=== PATIENT | male | born 1955 | race Caucasian/White ===

== ENCOUNTER 2016-07-24 09:45 | Day surgery (SDC) | payer OTHER ==
[~2016-07-24] VITALS: Ht 172.7 cm; Wt 80.7 kg
== END 2016-07-24 11:50 | disposition short-term general hospital (02) ==
LOC: SURGOP 09:45
PROC: 0DBE8ZZ Excision of Large Intestine, Via Natural or Artificial Opening Endoscopic (ICD-10-PCS; principal; 2016-07-24)
PROC: 0DB98ZX Excision of Duodenum, Via Natural or Artificial Opening Endoscopic, Diagnostic (ICD-10-PCS; 2016-07-24)
PROC: 0DB68ZX Excision of Stomach, Via Natural or Artificial Opening Endoscopic, Diagnostic (ICD-10-PCS; 2016-07-24)
DX: D12.6 Benign neoplasm of colon, unspecified (principal); K29.80 Duodenitis without bleeding; I10 Essential (primary) hypertension; E78.5 Hyperlipidemia, unspecified; M10.9 Gout, unspecified; Z87.891 Personal history of nicotine dependence; Z79.899 Other long term (current) drug therapy; Z90.89 Acquired absence of other organs; Z98.890 Other specified postprocedural states
CPT/HCPCS: J2175; J2250